=== PATIENT | female | born 1990 | race African-American/Black ===

== ENCOUNTER 2016-10-24 15:09 | Inpatient (IN) ==
[~2016-10-24 15:09] MED LIST: ONDANSETRON 4 MG/2 ML VIAL ONE
[2016-10-24] MEDS ORDERED: ONDANSETRON 4 MG/2 ML VIAL IV PRN ×2 (17:07→17:42)
[2016-10-24] MEDS ORDERED: CITRIC ACID/SODIUM CITRATE 30 ML UDCUP ONE (17:12)
[2016-10-24] MEDS ORDERED: OXYTOCIN/LR 20 UNIT/1,000 ML BAG IV ONE ×3 (17:12→20:11)
[2016-10-24 17:13] LABS: Apearance,Urine CLEAR (Clear); Bilirubin,Urine Negative (Negative); Blood, Urine Negative (Negative); Glucose,Urine (UA) Negative (Negative); Ketones,Urine 80 mg/dL (Negative); Mucus,Urine Occasional /LPF (Occasional); Nitrite,Urine Negative (Negative); Protein,Urine Negative; RBC,Urine 1 /HPF (0-4); Urine Color Yellow (Yellow); Urine Specific Gravity 1.024 (1.001-1.035); Urine Urobilinogen < 2.0 EU/DL (0.2-1.0); WBC,Urine 1 /HPF (0-6)
[2016-10-24 17:26] LABS: Basophils % 0.4 % (0.0-0.8); Eosinophils # 0.2 10*3/uL (0.0-0.87); Eosinophils % 3.9 % (0.00-10.9); Hematocrit 31.6 VOL% (35.7-47.0); Hemoglobin 10.5 GM/DL (12.0-16.0); Immature Granulocytes % 0.5 %; Immature Granulocytes Absolute 0.03 #; Lymphocytes # 1.3 10*3/uL (1.4-4.0); Lymphocytes % 22.5 % (21.3-54.2); Mean Corpuscular HGB Conc 33.2 GM/DL (32-36); Mean Corpuscular Hemoglobin 30 PG (27-34); Mean Corpuscular Volume 91.6 FL (87-102); Mean Platelet Volume 10.3 FL (9.6-12.0); Monocytes # 0.4 10*3/uL (0.11-0.8); Monocytes % 6.8 % (1.7-12.7); Neutrophils # 3.7 10*3/uL (1.4-7.4); Neutrophils % 65.9 % (38.7-73.9); Platelet Count 153 T/CUMM (130-400); Red Blood Count 3.45 MC/CUMM (3.8-5.5); Red Cell Distribution Width 13.5 % (9.3-17.3); White Blood Count 5.6 T/CUMM (4-12)
--- NOTE | 2016-10-24 17:31 | OB/GYN History & Physical ---
History of Present Illness History of present illness: ATTENDING [facility] FORMER Pt. 25 y/o BINDU 01/[birth year]17 @ 29+5 wks presents to labor and delivery with complaints of contractions. Pt. denies any vaginal bleeding, decreased movement or leakage of fluid. [facility], Dr. Graves. Pt. pnc complicated by NIDDM-diet controlled, hx chlamydia s/p txt , and h/o ptd x 2 receiving weekly mae injections. 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 - Constitutional Vitals: Vital Signs Pulse Resp BP Pulse Ox 10/24/16 16:00 101 H 20 123/75 99 General appearance: no acute distress - Antepartum / Post Antepartum Exam Cervix - Dilatation: 7-8CM Effacement: 90% Station: 0 Rupture: INTACT Heart Rate: 140S BPM REACTIVE [place]: EVERY 1-2 MIN - Respiratory Respiratory exam: Present: clear to auscultation bilaterally - Cardiovascular Cardiovascular exam: Present: regular rate and rhythm - GI/Abdominal GI/Abdominal exam: Present: normal bowel sounds - Extremities Exam Extremities exam: Present: normal inspection - Psychiatric Psychiatric exam: Present: normal affect, normal mood Assessment and Plan (1) labor in second trimester with delivery in third trimester Status: Acute Current Visit: Yes (2) Antepartum malpresentation of fetus Status: Acute Assessment and plan: 1. ADMIT TO LABOR AND DELIVERY 2. IVFS 3. LABS 4. ANESTHESIA CONSULT 5. NICU CONSULT 6. PT COUNSELED REGARDING ACTIVE LABOR WITH FETUS IN THE TRANSVERSE LIE PRESENTATION AND NEED TO PROCEED WITH AN DELIVERY. WE DISCUSSED THE RISK OF SURGERY INCLUDING BLEEDING, INFECTION, BOWEL OR BLADDER INJURY , HYSTERECTOMY, ETC. PT EXPRESSED HER UNDERSTANDING. ALL QUESTIONS ANSWERED. CONSENT SIGNED AND WITNESSED. PT FOR STAT DELIVERY. Current Visit: Yes (3) Qsx-tamfymj-whokkbhld diabetes mellitus during , antepartum Status: Acute Current Visit: Yes
[2016-10-24] MEDS ORDERED: ACETAMINOPHEN 325 MG TABLET PO PRN (17:42)
[2016-10-24] MEDS ORDERED: MAGNESIUM HYDROXIDE SUSP 30 ML UDCUP PO PRN (17:42)
[2016-10-24] MEDS ORDERED: SIMETHICONE CHEW 80 MG TABLET PO PRN (17:42)
[2016-10-24] MEDS ORDERED: RHO(D) IMMUNE GLOBULIN 300 MCG SYRINGE IM ONE (17:42)
--- NOTE | 2016-10-24 17:42 | Operative Note ---
Date of procedure: 10/24/16 Pre-op diagnosis: 25Y/O G0212 @ 29+5WKS IN LABOR WITH MALPRESENTING FETUS Post-op diagnosis: same Procedure: FINDINGS: A living Female , transverse back up , weight 3lbs 10oz, scores 7 and 9. DESCRIPTION OF PROCEDURE: The patient was brought to the operating room after her spinal preparation, and Cardozo had been performed. The abdomen was prepped and draped in the normal sterile fashion and tested for analgesia. When found to be adequate, a low-abdominal Pfannenstiel incision was made with the first knife and carried down to the fascia with the bovie. The fascia was cleared of subcutaneous tissue. Bleeding points were clamped with hemostats and Bovie coagulated. The fascia was incised in the midline and extended laterally with curved Porter scissors. Debbie clamps were placed on the fascial edge, anteriorly. The rectus muscles were by sharp dissection. The rectus muscles were divided in the midline by sharp dissection. The parietoperitoneum was grasped with hemostats and carefully entered and the incision extended with Metzenbaum scissors. The bladder blade was inserted. The visceroperitoneum was grasped with smooth pickups, entered with Metzenbaum scissors, and extended laterally. The bladder flap was created by gentle blunt dissection and placed behind the bladder blade. The lower uterine segment was carefully incised with a scalpel and extended laterally with bandage scissors. A living female was delivered atraumatically from the breech presentation. The baby was suctioned and cried immediately, and was handed to the pediatric team in attendance. The placenta was delivered with gentle uterine massage. The uterus was explored with a wet lap sponge and found to be clear of membranes. The angles of the incision were sutured 0 vicryl in a locked running fashion. Hemostasis was carefully checked and found to be satisfactory. The fallopian tubes and ovaries were inspected and found to be normal bilaterally. Interceed was then placed over the uterine incision. The peritoneum was approximated using 2. 0 chromic in a running fashion. The muscle was reapproximated using 2.0 chromic in an interrupted fashion. The fascia was closed with 0-Vicryl in a running fashion. The skin was closed in a subcuticular fashion with 4.0 monocryl. The patient was transferred to the recovery room in good condition. Anesthesia: spinal Surgeon / Physician: Tila Smauels Estimated blood loss: other (600cc) Specimens: other (PLACENTA, CORD, MEMBRANES) Condition: stable Disposition: floor Results - Labs CBC & BMP: 10/24/16 17:16 Discharge Plan - Discharge Medications No Action No122/Iron/Folic Acid [ Multi Tablet] 1 tablet PO DAILY - Follow Up or Referral - Forms/Instructions
[2016-10-24] MEDS ORDERED: TISSUE ADHESIVE 1 EACH APPLICATOR TOP ONE (17:48)
--- NOTE | 2016-10-24 17:55 | Ultrasound Report ---
US OB limited Indication: Evaluation of position. Comparison: None. Technique: Using transabdominal probe, multiple grayscale, color Doppler, and M-mode Doppler images of the fetus were captured and stored. Findings: The cervix is distended measuring 1.3 cm. Endocervical canal is closed. Anterior placenta is demonstrated. Fetus lies in transverse position. heart rate is 132. Impression: 1. lie is transverse. 2. Shortening of the cervix is present. 10/24/2016 5:51 PM PROCEDURE INTERPRETED AT [facility] DEPARTMENT OF RADIOLOGY Final Report Signed by: Dr. Jorge Townsend
[2016-10-24] MEDS ORDERED: LACTATED RINGERS 1,000 ML IV SCH (18:00)
[2016-10-24] MEDS ORDERED: FAMOTIDINE 20 MG/2 ML VIAL IV ONE (18:16)
[2016-10-24] MEDS ORDERED: CITRIC ACID/SODIUM CITRATE 30 ML UDCUP PO ONE (18:16)
[2016-10-24 18:43] LABS: Apearance,Urine CLEAR (Clear); Bilirubin,Urine Negative (Negative); Blood, Urine Negative (Negative); Glucose,Urine (UA) Negative (Negative); Ketones,Urine 80 mg/dL (Negative); Mucus,Urine Occasional /LPF (Occasional); Nitrite,Urine Negative (Negative); Protein,Urine Negative; RBC,Urine 4 /HPF (0-4); Urine Color Yellow (Yellow); Urine Specific Gravity 1.016 (1.001-1.035); Urine Urobilinogen < 2.0 EU/DL (0.2-1.0); WBC,Urine <1 /HPF (0-6)
[2016-10-24] MEDS ORDERED: fentaNYL 100 MCG/2 ML VIAL ONE (18:54)
[2016-10-24] MEDS ORDERED: MORPHINE 10 MG/10 ML VIAL ONE (18:55)
[2016-10-24 19:05] LABS: Cord Venous Blood HCO3 23.1 MMOL/L; Cord Venous Blood PCO2 35.8 MMHG; Cord Venous Blood PO2 48.1
[2016-10-24] MEDS: LACTATED RINGERS 1,000 ML IV SCH ×2 (19:44→19:45)
[2016-10-24] MEDS: IBUPROFEN 800 MG TABLET PO PRN (20:08)
[2016-10-24 21:38] LABS: Basophils % 0.2 % (0.0-0.8); Eosinophils # 0.1 10*3/uL (0.0-0.87); Eosinophils % 1.2 % (0.00-10.9); Hematocrit 30.9 VOL% (35.7-47.0); Hemoglobin 10.3 GM/DL (12.0-16.0); Immature Granulocytes % 0.7 %; Immature Granulocytes Absolute 0.06 #; Lymphocytes % 12.2 % (21.3-54.2); Mean Corpuscular HGB Conc 33.3 GM/DL (32-36); Mean Corpuscular Hemoglobin 30 PG (27-34); Mean Corpuscular Volume 90.9 FL (87-102); Mean Platelet Volume 10.4 FL (9.6-12.0); Monocytes # 0.5 10*3/uL (0.11-0.8); Monocytes % 6.1 % (1.7-12.7); Neutrophils # 6.6 10*3/uL (1.4-7.4); Neutrophils % 79.6 % (38.7-73.9); Platelet Count 145 T/CUMM (130-400); Red Cell Distribution Width 13.4 % (9.3-17.3); White Blood Count 8.3 T/CUMM (4-12)
[2016-10-24] MEDS ORDERED: diphenhydrAMINE 50 MG/1 ML VIAL IV PRN (22:13)
[2016-10-24 23:22] LABS: Barbiturates Screen,Urine Negative (Negative); Benzodiazepines Screen,Urine Negative (Negative); Cannabinoid Screen,Urine Negative (Negative); Opiate Screen,Urine Negative (Negative); Phencyclidine Screen,Urine Negative (Negative)
[2016-10-25] MEDS ORDERED: diphenhydrAMINE 50 MG/1 ML VIAL IV PRN (03:25)
[2016-10-25 05:00] LABS: Basophils % 0.1 % (0.0-0.8); Eosinophils # 0.1 10*3/uL (0.0-0.87); Eosinophils % 1.4 % (0.00-10.9); Hemoglobin 9.8 GM/DL (12.0-16.0); Immature Granulocytes % 0.4 %; Immature Granulocytes Absolute 0.03 #; Lymphocytes # 1.2 10*3/uL (1.4-4.0); Lymphocytes % 16.4 % (21.3-54.2); Mean Corpuscular HGB Conc 33.8 GM/DL (32-36); Mean Corpuscular Hemoglobin 31 PG (27-34); Mean Corpuscular Volume 90.9 FL (87-102); Mean Platelet Volume 10.4 FL (9.6-12.0); Monocytes # 0.5 10*3/uL (0.11-0.8); Monocytes % 6.4 % (1.7-12.7); Neutrophils # 5.4 10*3/uL (1.4-7.4); Neutrophils % 75.3 % (38.7-73.9); Platelet Count 141 T/CUMM (130-400); Red Blood Count 3.19 MC/CUMM (3.8-5.5); Red Cell Distribution Width 13.2 % (9.3-17.3); White Blood Count 7.2 T/CUMM (4-12)
[2016-10-25] MEDS: MULTIVITAMIN (PRENATAL) TABLET PO SCH (08:54)
[2016-10-25] MEDS: DOCUSATE SODIUM 100 MG CAPSULE PO SCH ×3 (08:54→21:31)
--- NOTE | 2016-10-25 13:55 | Progress Note ---
Assessment and Plan (1) delivery delivered Status: Acute Current Visit: Yes Family Medicine PN Sub Interval history: No complaints, not using analgesia. Exam (Progress Note) - Constitutional Vitals: Period Temp Pulse Resp BP Sys/Brunner Pulse Ox Last 24 Hr 97.1 F-98.8 F 67-101 18-20 105-147/65-86 98-100 General appearance: no acute distress - Head Head exam: Present: normal inspection - Neck Neck exam: Present: normal inspection - Respiratory Respiratory exam: Present: clear to auscultation bilaterally. Absent: accessory muscle use - Cardiovascular Cardiovascular exam: Present: regular rate and rhythm - GI/Abdominal GI/Abdominal exam: Present: normal bowel sounds, soft (fundus tonic 4 finger below umbilicus). Absent: tenderness, rebound - Back Exam Back exam: Present: normal inspection - Neurological Exam Neurological exam: Present: alert, oriented X3 - Psychiatric Psychiatric exam: Present: normal affect, normal mood - Skin Skin exam: Present: normal color, warm, dry Results - Labs CBC & BMP: 10/25/16 04:37
[2016-10-25] MEDS: IBUPROFEN 800 MG TABLET PO PRN (21:30)
[2016-10-26] MEDS: DOCUSATE SODIUM 100 MG CAPSULE PO SCH ×2 (08:44→20:32)
[2016-10-26] MEDS: MULTIVITAMIN (PRENATAL) TABLET PO SCH (09:32)
--- NOTE | 2016-10-26 12:50 | OB/GYN Progress Note ---
Assessment and Plan (1) delivery delivered Status: Acute Assessment and plan: Continued supportive care today, arrange for discharge in the morning. Current Visit: Yes [employer] - PN: Subj Interval history: Patient has some vague complaints but nothing of any consequence. Does not feel ready to go home and wants to stay 1 more day with her infant. She appears to not have any support at home to help her see her child otherwise when she is discharged. Exam [employer] - Constitutional Vitals: Vital Signs Temp Pulse Resp BP Pulse Ox 10/26/16 11:34 99.2 F 98 H 18 101/65 98 10/26/16 07:46 99.7 F H 86 18 104/63 97 10/26/16 06:42 18 10/26/16 06:00 18 10/26/16 05:00 18 10/26/16 04:00 98.6 F 76 18 102/69 98 10/26/16 03:00 18 10/26/16 02:00 18 10/26/16 01:00 18 10/25/16 23:47 98.9 F 79 18 97/66 98 10/25/16 23:00 18 10/25/16 20:00 97.6 F 76 18 101/68 98 10/25/16 16:00 98.4 F 73 18 90/59 98 General appearance: no acute distress - Head Head exam: Present: normocephalic - Respiratory Respiratory exam: Present: clear to auscultation bilaterally. Absent: accessory muscle use - Breast Breasts: as per HPI - Cardiovascular Cardiovascular exam: Present: regular rate and rhythm - GI/Abdominal GI/Abdominal exam: Present: normal bowel sounds, soft. Absent: tenderness, rebound - Extremities Exam Extremities exam: Present: normal inspection - Back Exam Back exam: Present: normal inspection - Neurological Exam Neurological exam: Present: alert, oriented X3 - Psychiatric Psychiatric exam: Present: normal affect, normal mood - Skin Skin exam: Present: normal color, warm, dry Results - Labs CBC & BMP: 10/25/16 04:37
--- NOTE | 2016-10-26 14:20 | Pathology Report from [facility] ---
[facility] ACCESSION # : [id number] PATIENT NAME : Smitha Posey ORDERING DR : GERMAINE LAMA DO CLINICAL HX: IUP @ 29.5 wks, active labor, malpresentation of fetus POST-OP DX: Same SPECIMEN INFO: Placenta GROSS DESCRIPTION: The specimen is received fresh labeled SMITHA POSEY consists of a 222.0 gm placenta measuring 15.0 x 11.5 x 2.3 cm. membranes are pink-kraft and translucent. The umbilical cord measures 6.0 cm, contains three vessels and is eccentrically inserted. The surface is blue -gil and intact. The maternal surface displays mildly disrupted hemorrhagic cotyledons. No abnormalities appreciated upon sectioning. Sections submitted: (A) membranes and cord, (B) and maternal surfaces. DIAGNOSIS FOR SMITHA POSEY: PLACENTA, 29.5 WEEK GESTATIONAL AGE, SECTION: Slightly immature placenta, 222 gms trimmed weight, <10th percentile for provided gestational age. Pigmented laden macrophages within the chorionic plate. Trivascular umbilical cord, 6 cm in length. COLLECTED DATE: 10/25/2016 [employer] REPORT DATE: 10/26/2016 ELECTRONICALLY SIGNED BY: Tanja Milner M.D. 10/26/2016 - 11:46:32 MTDJose
[2016-10-27 07:42] VITALS: BP 119/81
[2016-10-27] MEDS: DOCUSATE SODIUM 100 MG CAPSULE PO SCH (08:25)
[2016-10-27] MEDS: MULTIVITAMIN (PRENATAL) TABLET PO SCH (08:26)
[2016-10-27] MEDS ORDERED: MEASLES/MUMPS/RUBELLA VACCINE 0.5 ML VIAL SUBCUT ONE (12:00)
== END 2016-10-27 16:15 | disposition home or self-care (01) | DRG 765 ==
LOC: N.LDOUT 15:09 → N.LD 17:33 → N.OB 22:54
PROVIDERS: ADMIT Obstetrics & Gynecology; ATTEND Obstetrics & Gynecology
PROC: LDCSECT (ICD-10-PCS; 2016-10-24 17:30)